=== PATIENT | female | born 1990 | race American Indian/Alaskan Native ===

== ENCOUNTER 2016-07-17 21:18 | Emergency (ER) | payer SELFPAY ==
[2016-07-17 22:11] LABS: Basophils % (Auto) 0.5 % (0.0-1.8); Eosinophils % (Auto) 3.3 % (0.0-4.3); Hematocrit 37.5 % (30.3-42.9); Hemoglobin 12.2 gm/dl (10.1-14.3); Mean Corpuscular HGB Conc 33 % (30-34); Mean Corpuscular Hemoglobin 29 pg (28-32); Mean Corpuscular Volume 89 fl (79-97); Platelet Count 282 K/mm3 (140-440); Red Blood Count 4.23 M/mm3 (3.65-5.03); Red Cell Distribution Width 15.4 % (13.2-15.2); White Blood Count 9.2 K/mm3 (4.5-11.0)
[2016-07-17 22:17] LABS: Alanine Aminotransferase 5 units/L (7-56); Albumin 4.5 g/dL (3.9-5); Albumin/Globulin Ratio 1.5 %; Alkaline Phosphatase 53 units/L (35-129); Anion Gap 20 mmol/L; Bilirubin,Total 0.3 mg/dL (0.1-1.2); Blood Urea Nitrogen 6 mg/dL (7-17); Calcium 9.3 mg/dL (8.4-10.2); Carbon Dioxide 24 mmol/L (22-30); Chloride 102.7 mmol/L (98-107); Glucose 88 mg/dL (65-100); Lipase 19 units/L (13-60); Potassium 4.3 mmol/L (3.6-5.0); Sodium 142 mmol/L (137-145); Total Protein 7.6 g/dL (6.3-8.2)
[2016-07-18] MEDS ORDERED: NORCO 5/325 PO ONE (07:25)
--- NOTE | 2016-07-18 07:30 | Emergency Department Report ---
ED Abdominal Pain HPI - General Chief Complaint: Abdominal Pain Stated Complaint: N/V/D Time Seen by Provider: 07/18/16 07:03 Source: patient Mode of arrival: Ambulatory Limitations: No Limitations - History of Present Illness Initial Comments: 25-year-old female presents to the emergency department complaining of abdominal pain. Patient reports the onset of sharp, burning epigastric pain at approximately 8 PM last night. She states the pain has radiated and migrated to the rest of her abdomen. Pain has been constant since onset, but has been waxing and waning in intensity. She reports associated fatigue and nausea. She denies vomiting. She also reports loose stools. Patient states she had similar pain approximately 1 week ago that resolved. She states she has never had this type of pain before. There are no other complaints. MD Complaint: abdominal pain -: Sudden, Last night Time: 20:00 Location: epigastric Radiation: other (periumbilical) Migration to: other (diffuse abdomen) Severity: moderate Severity scale (0 -10): 6 Quality: sharp, burning Consistency: constant Improves With: nothing Worsens With: nothing Associated Symptoms: nausea, diarrhea. denies: vomiting, fever - Related Data Previous Rx's Medication Instructions Recorded Last Taken Type Famotidine [Pepcid] 20 mg PO BID #30 tablet 07/18/16 Unknown Rx HYDROcodone/APAP 5-325 [[place] 1 each PO Q6HR PRN #20 tablet 07/18/16 Unknown Rx 5/325] Allergies Allergy/AdvReac Type Severity Reaction Status Date / Time No Known Allergies Allergy Unverified 07/17/16 21:39 ED Review of Systems ROS: Stated complaint: N/V/D Other details as noted in HPI Comment: All other systems reviewed and negative Gastrointestinal: abdominal pain, nausea, diarrhea ED Past Medical Hx - Past Medical History Previous Medical History?: Yes Additional medical history: Anemia - Surgical History Past Surgical History?: Yes Additional Surgical History: tonsillectomy - Family History Family history: no significant - Social History Smoking Status: Current Every Day Smoker Substance Use Type: Alcohol, Marijuana - Medications Home Medications: Home Medications Medication Instructions Recorded Confirmed Last Taken Type Famotidine [Pepcid] 20 mg PO BID #30 tablet 07/18/16 Unknown Rx HYDROcodone/APAP 5-325 [[place] 1 each PO Q6HR PRN #20 tablet 07/18/16 Unknown Rx 5/325] ED Physical Exam - General Limitations: No Limitations General appearance: alert, in no apparent distress - Head Head exam: Present: atraumatic, normocephalic - Eye Eye exam: Present: normal appearance, PERRL, EOMI - ENT ENT exam: Present: normal exam, normal orophraynx, mucous membranes moist - Neck Neck exam: Present: normal inspection, full ROM. Absent: tenderness - Respiratory Respiratory exam: Present: normal lung sounds bilaterally. Absent: respiratory distress - Cardiovascular Cardiovascular Exam: Present: regular rate, normal rhythm, normal heart sounds - GI/Abdominal GI/Abdominal exam: Present: soft, tenderness (mild diffuse tenderness to palpation), normal bowel sounds. Absent: distended, guarding, rebound - Extremities Exam Extremities exam: Present: normal inspection, full ROM. Absent: tenderness - Back Exam Back exam: Present: normal inspection, full ROM. Absent: tenderness - Neurological Exam Neurological exam: Present: alert, oriented X3. Absent: motor sensory deficit - Skin Skin exam: Present: warm, dry, intact ED Course Vital Signs 07/17/16 07/18/16 07/18/16 21:34 03:21 05:39 Temperature 98.2 F 98.3 F Pulse Rate 59 L 84 67 Respiratory 18 18 16 Rate Blood Pressure 113/74 115/65 Blood Pressure 106/64 [Left] O2 Sat by Pulse 98 99 99 Oximetry 07/18/16 07/18/16 07/18/16 06:00 06:51 08:23 Temperature 98 F Pulse Rate 72 87 Respiratory 16 16 Rate Blood Pressure Blood Pressure 104/61 109/46 [Left] O2 Sat by Pulse 98 99 100 Oximetry ED Medical Decision Making - Lab Data Result diagrams: 07/17/16 21:43 07/17/16 21:43 - Radiology Data Radiology results: image reviewed interpreted by me: Portable chest x-ray reveals no acute cardiopulmonary abnormalities. There is no free air noted under the diaphragms. - Medical Decision Making Lab and imaging results reviewed and discussed with the patient. Patient reports feeling better following medication. Patient will be discharged home at this time. - Differential Diagnosis gastritis, PUD, pancreatitis, cholecystitis Critical care attestation.: If time is entered above; I have spent that time in minutes in the direct care of this critically ill patient, excluding procedure time. ED Disposition Clinical Impression: Epigastric abdominal pain Disposition: DISCHARGED TO HOME OR SELFCARE Is pt being admited?: No Condition: Stable Instructions: Abdominal Pain (ED) Prescriptions: Famotidine [Pepcid] 20 mg PO BID #30 tablet HYDROcodone/APAP 5-325 [[place] 5/325] 1 each PO Q6HR PRN #20 tablet PRN Reason: Pain Referrals: PRIMARY CARE, [Primary Care Provider] - 3-5 Days Time of Disposition: 08:54
[2016-07-18 07:41] LABS: Bacteria,Urine 1+ /HPF (Negative); Bilirubin,Urine NEG (Negative); Blood,Urine NEG (Negative); Ketones,Urine NEG (Negative); Leukocyte Esterase,Urine SM (Negative); Mucus,Urine 3+ /HPF; Nitrite,Urine NEG (Negative); Protein,Urine <15 mg/dL mg/dL (Negative); Urobilinogen,Urine < 2.0 mg/dL (<2.0)
--- NOTE | 2016-07-18 08:24 | XRay Report ---
AP CHEST: HISTORY: Difficulty in breathing AP view of the chest demonstrates a normal mediastinal and cardiac contour with clear lungs and normal bony and soft tissue structures. IMPRESSION: Unremarkable AP chest.
[2016-07-18 09:07] VITALS: BP 101/51
== END 2016-07-18 09:45 | disposition home or self-care (01) ==
LOC: ED 21:18
DX: R10.13 Epigastric pain (principal); F17.200 Nicotine dependence, unspecified, uncomplicated; F12.10 Cannabis abuse, uncomplicated; Z90.89 Acquired absence of other organs
CPT/HCPCS: 36415; 71010; 80053; 81001; 81025; 83690; 85025; 99284